=== PATIENT | female | born 1945 | race Caucasian/White ===

== ENCOUNTER → 2017-11-15 | Outpatient (CLI) | payer MEDICARE ==
[~2017-11-15] MED LIST: BUSP15TA69 PO; BUSP30TA PO; CALC-852 PO; GLIP-137 PO; HYDR-385 PO; LETPT PO; LISI-374 PO; METF-415 PO; METF-421 PO; OLME5TAB8 PO
[2017-11-15 08:52] LABS: PLATELET COUNT, AUTOMATED 245 K/uL (150-450)
--- NOTE | 2017-11-15 10:03 | RADIOLOGY IMAGING REPORT ---
FACILITY: [facility] - [place] PATIENT NAME: Stephanie Kraft : 1945 MR: [id number] V: [id number] EXAM DATE: ORDERING PHYSICIAN: ELISA PAYTON TECHNOLOGIST: Location: [facility] Patient: Stephanie Kraft : 1945 Visit/Account:[id number] Date of Sevice: 11/15/2017 2 VIEWS CHEST INDICATION: Breast cancer. COMPARISON: 11/14/2016 FINDINGS: The lungs are clear and are mildly hyperexpanded. No focal infiltrate. Subtle ovoid opacity in the ri ght apical region medially has been seen on exams dating back to 2013 and likely represents a vascula r shadow. No effusion or pneumothorax is seen. Heart size and mediastinal contours are normal. Surgic al clips overlie the right axilla. IMPRESSION: 1. Mild hyperexpansion without radiographic evidence of active disease. 2. No significant interval change. Report Dictated By: Corey Snyder at 11/15/2017 9:52 AM Report E-Signed By: Corey Snyder at 11/15/2017 9:59 AM WSN:[id number]
--- NOTE | 2017-11-19 10:49 | RADIOLOGY IMAGING REPORT ---
FACILITY: [facility] - [place] PATIENT NAME: ALEXANDER GONZALEZ : [id number] MR: [id number] V: [id number] EXAM DATE: ORDERING PHYSICIAN: ELISA PAYTON TECHNOLOGIST: Leela Kamara PROCEDURE:BILATERAL DIGITAL SCREENING MAMMOGRAM WITH CAD ASSISTED INTERPRETATION & 3D TOMOSYNTHESIS COMPARISON:Prior mammograms 11/14/16, 10/26/15, 10/18/14, 10/12/13, 10/01/13. INDICATIONS:SCREENING FINDINGS: Small amount of fibroglandular tissue is seen throughout the breasts. There is an area of architectural distortion in the upper outer quadrant of the Right breast in location of a previous lumpectomy. There is a focal spiculation in the upper portion Right breast on the Right MLO view in the middle 1/3 that appears slightly more prominent when compared to the prior study. Although this could simply represent scar tissue a Spot compression view is recommended for further evaluation. An XCC view of the Right breast is also recommended. The parenchymal pattern throughout the Left breast has remained stable. DIAGNOSTIC CATEGORY 0--INCOMPLETE: NEED ADDITIONAL IMAGING EVALUATION. RECOMMENDATIONS: ADDITIONAL MAMMOGRAPHIC VIEWS REQUIRED: RIGHT BREAST. IMPRESSION: BIRADS 0: Incomplete. Additional views of the Right breast recommended as described. Dictated by: Nhi Will M.D. on 11/18/2017 at 17:20 Transcribed by: ANTHONY on 11/19/2017 at 8:06 Approved by: Nhi Will M.D. on 11/19/2017 at 10:48 [facility]
== END ==
LOC: MAMO 03:11
PROVIDERS: ATTEND Internal Medicine Hematology & Oncology
DX: Z12.31 Encounter for screening mammogram for malignant neoplasm of breast (principal); C50.411 Malignant neoplasm of upper-outer quadrant of right female breast; R91.8 Other nonspecific abnormal finding of lung field; R92.2 Inconclusive mammogram
CPT/HCPCS: 36415; 71046; 77063; 77067; 82040; 82247; 82310; 82374; 82378; 82435; 82565; 82947; 84075; 84132; 84155; 84295; 84450; 84460; 84520; 85025; 86300

== ENCOUNTER → 2018-01-22 | Outpatient (CLI) | payer MEDICARE ==
[~2018-01-22] MED LIST changes: -METF-421 PO; +METF-452 PO
--- NOTE | 2018-01-23 10:45 | RADIOLOGY IMAGING REPORT ---
FACILITY: [facility] - [place] PATIENT NAME: ALEXANDER GONZALEZ : [id number] MR: [id number] V: [id number] EXAM DATE: [id number] ORDERING PHYSICIAN: ELISA PAYTON TECHNOLOGIST: Dov Teran RDMS, [facility] PROCEDURE:US RIGHT BREAST COMPARISON:Today's diagnostic Right mammogram. INDICATIONS:further evaluation FINDINGS: In the 11 o'clock position of the Right breast just medial to the patient's lumpectomy scar is a 2.5 x 3.1 x 2.2mm slightly irregular hypoechoic mass with acoustic shadowing. This likely accounts for Today's mammographic finding. Ultrasound guided core biopsy of this nodule is recommended for further evaluation with post biopsy clip placement. DIAGNOSTIC CATEGORY 4--SUSPICIOUS FOR MALIGNANCY. RECOMMENDATIONS: ULTRASOUND-GUIDED CORE BIOPSY: RIGHT BREAST. IMPRESSION: BIRADS 4: Suspicious for malignancy. Ultrasound guided core biopsy of the slightly irregular hypoechoic mass in the 11 o'clock position of the Right breast recommended as described above. Dictated by: Nhi Will M.D. on 01/22/2018 at 17:14 Transcribed by: ANTHONY on 01/23/2018 at 9:49 Approved by: Nhi Will M.D. on 01/23/2018 at 10:44 [facility]
--- NOTE | 2018-01-23 10:45 | RADIOLOGY IMAGING REPORT ---
FACILITY: [facility] - [place] PATIENT NAME: ALEXANDER GONZALEZ : [id number] MR: [id number] V: [id number] EXAM DATE: [id number] ORDERING PHYSICIAN: ELISA PAYTON TECHNOLOGIST: Leela Kamara PROCEDURE:RIGHT DIGITAL DIAGNOSTIC MAMMOGRAM WITH CAD ASSISTED INTERPRETATION & 3D TOMOSYNTHESIS COMPARISON:Prior mammograms 11/15/17, 11/14/16, 10/26/15, 10/18/14, 10/12/13, 10/01/13. INDICATIONS:further evaluation FINDINGS: The patient returns for full field Right mediolateral view, Right XCC view, and Spot compression view in the Right MLO projection all with 3D breast Tomosynthesis. Additional imaging does demonstrate a small focal spiculation in the posterior 1/3 upper outer quadrant of the Right breast adjacent to patient's lumpectomy scar that appears more prominent when compared to the prior study. This corresponds to a slightly irregular hypoechoic mass on Today's Right breast Ultrasound therefore Ultrasound guided core biopsy is recommended for further evaluation. DIAGNOSTIC CATEGORY 4--SUSPICIOUS FOR MALIGNANCY. RECOMMENDATIONS: ULTRASOUND-GUIDED CORE BIOPSY: RIGHT BREAST. IMPRESSION: BIRADS 4: Suspicious for malignancy. Ultrasound guided core biopsy of the irregular hypoechoic mass in the upper outer quadrant of the Right breast posterior 1/3 recommended. Dictated by: Nhi Will M.D. on 01/22/2018 at 17:16 Transcribed by: ANTHONY on 01/23/2018 at 9:42 Approved by: Nhi Will M.D. on 01/23/2018 at 10:43 [facility]
== END ==
LOC: MAMO 02:40
PROVIDERS: ATTEND Internal Medicine Hematology & Oncology
DX: N63.11 Unspecified lump in the right breast, upper outer quadrant (principal)
CPT/HCPCS: 77061; 77065

== ENCOUNTER → 2018-01-30 | Outpatient (CLI) | payer MEDICARE ==
[2018-01-30 14:06] LABS: INR 0.98
== END ==
LOC: LAB 13:46
PROVIDERS: ATTEND Internal Medicine Hematology & Oncology
DX: Z01.818 Encounter for other preprocedural examination (principal)
CPT/HCPCS: 36415; 85610

== ENCOUNTER → 2018-01-31 | Outpatient (CLI) | payer MEDICARE ==
--- NOTE | 2018-02-04 10:09 | RADIOLOGY IMAGING REPORT ---
FACILITY: [facility] PATIENT NAME: ALEXANDER GONZALEZ : [id number] MR: [id number] V: [id number] EXAM DATE: [id number] ORDERING PHYSICIAN: RADHA TREJO TECHNOLOGIST: Lindsay Maria RDMS(ABD,OBGYN,BR),RVT PROCEDURE: BIOPSY RIGHT BREAST COMPARISON: None. INDICATIONS: RIGHT BREAST MASS FINDINGS: Informed consent was obtained. The patient's Right breast was prepped and draped in the usual sterile fashion. Local anesthesia was accomplished with 1% lidocaine. Under sonographic guidance (2) 12 Gauge core biopsies were obtained through the small hypoechoic mass in the 11 o' clock position of the Right breast. A biopsy clip was placed. The post biopsy mammogram did demonstrate the clip more anterior and medial then would be expected. Pathology results are pending. IMPRESSION: 1. Successful sonographically guided Right breast biopsy. Dictated by: Nhi Will M.D. on 01/31/2018 at 15:53 Transcribed by: ANTHONY on 01/31/2018 at 16:05 Approved by: Nhi Will M.D. on 02/04/2018 at 10:08 [facility]
--- NOTE | 2018-02-04 10:09 | RADIOLOGY IMAGING REPORT ---
FACILITY: [facility] PATIENT NAME: ALEXANDER GONZALEZ : [id number] MR: [id number] V: [id number] EXAM DATE: [id number] ORDERING PHYSICIAN: RADHA TREJO TECHNOLOGIST: Lindsay Maria RDMS(ABD,OBGYN,BR),RVT PROCEDURE: BIOPSY RIGHT BREAST COMPARISON: None. INDICATIONS: RIGHT BREAST MASS FINDINGS: Informed consent was obtained. The patient's Right breast was prepped and draped in the usual sterile fashion. Local anesthesia was accomplished with 1% lidocaine. Under sonographic guidance (2) 12 Gauge core biopsies were obtained through the small hypoechoic mass in the 11 o' clock position of the Right breast. A biopsy clip was placed. The post biopsy mammogram did demonstrate the clip more anterior and medial then would be expected. Pathology results are pending. IMPRESSION: 1. Successful sonographically guided Right breast biopsy. Dictated by: Nhi Will M.D. on 01/31/2018 at 15:53 Transcribed by: ANTHONY on 01/31/2018 at 16:05 Approved by: Nhi Will M.D. on 02/04/2018 at 10:08 [facility]
== END ==
LOC: MAMO 01-30 12:36 → EDSTATUS 07:11
PROVIDERS: ATTEND Registered Nurse
DX: C50.411 Malignant neoplasm of upper-outer quadrant of right female breast (principal); Z17.0 Estrogen receptor positive status [ER+]; N63.10 Unspecified lump in the right breast, unspecified quadrant
CPT/HCPCS: 19083; 88305; 88344